=== PATIENT | female | born 1940 | race Caucasian/White ===

== ENCOUNTER 2020-08-11 15:48 | Emergency (ER) | payer MEDICARE ==
[2020-08-11] MEDS ORDERED: KETOROLAC TROMETHAMINE 30MG/ML ONE (16:52)
[2020-08-11] MEDS ORDERED: CYCLOBENZAPRINE HCL 10 MG TABLET ONE (16:52)
[2020-08-11] MEDS ORDERED: HYDROCODONE/ACETAMINOPHEN 10/325 MG TAB ONE (16:53)
== END 2020-08-11 18:13 | disposition home or self-care (01) ==
LOC: EDH 15:48
DX: M54.5 Low back pain (principal); M51.36 Other intervertebral disc degeneration, lumbar region; E11.9 Type 2 diabetes mellitus without complications; Z88.1 Allergy status to other antibiotic agents
CPT/HCPCS: 72100; 96372; 99283; J1885

== ENCOUNTER 2021-06-29 18:08 | Inpatient (IN) | payer MEDICARE, OTHER ==
[~2021-06-29] VITALS: Ht 165.1 cm; Wt 75.3 kg
[2021-06-29] MEDS ORDERED: 0.9%NACL 1000ML 1,000 ML IV ONE (18:30)
[2021-06-29] MEDS ORDERED: FENTANYL CITRATE PF 50 MCG/1 ML 2ML VIAL IVP PRN ×2 (18:30→22:00)
[2021-06-29 20:17] LABS: BASOPHILS % (AUTO) 0.4 % (0.0-5.0); EOSINOPHILS % (AUTO) 0.9 % (0.0-8.0); HEMATOCRIT 34.4 % (36-48); LYMPHOCYTES % (AUTO) 18.2 % (21.0-51.0); MEAN CORPUSCULAR HEMOGLOBIN 28.8 pg (27.0-33.0); MEAN CORPUSCULAR HGB CONC 31.7 g/dL (32.0-36.0); PLATELET COUNT (AUTO) 206 K/uL (130-400); RED BLOOD CELL COUNT(AUTO) 3.78 MIL/uL (4.00-5.50); RED CELL DISTRIBUTION WIDTH 13.4 % (11.0-15.5); WHITE BLOOD COUNT (AUTO) 10.7 K/uL (4.8-10.8)
[2021-06-29 20:27] LABS: POTASSIUM 3.6 mmol/L (3.5-5.1)
[2021-06-29 20:33] LABS: ALBUMIN 3.6 g/dL (3.5-5.0); BILIRUBIN,TOTAL 0.2 mg/dL (0.2-1.0); TOTAL PROTEIN, SERUM 7.3 g/dL (6.0-8.3)
[2021-06-29 21:34] LABS: APPEARANCE,URINE Clear (CLEAR); BILIRUBIN,URINE Negative (NEGATIVE); COLOR,URINE Yellow (YELLOW); GLUCOSE, URINE (UA) TRACE mg/dL (NEGATIVE); KETONES,URINE Negative (NEGATIVE); LEUKOCYTE ESTERASE ,URINE Negative (NEGATIVE); NITRATE,URINE Negative (NEGATIVE); OCCULT BLOOD,URINE Negative (NEGATIVE); PROTEIN,URINE Trace mg/dL (NEGATIVE); UROBILINOGEN,URINE 0.2 mg/dL (0.2-1.0)
[2021-06-29 21:46] LABS: BACTERIA,URINE None Seen /HPF (None Seen); RBC,URINE None Seen /HPF (0-1); SQUAMOUS EPITHELIAL CELL,UR None Seen /HPF (0-2); WBC,URINE 0-1 /HPF (0-1)
[2021-06-29] MEDS ORDERED: ONDANSETRON 4MG INJ IV PRN (22:00)
[2021-06-29] MEDS: LACTATED RINGERS 1000ML 1,000 ML IV SCH (22:11)
[2021-06-30] VITALS (22 sets, daily range): BP systolic 108–145; BP diastolic 55–80
[2021-06-30 04:07] LABS: BASOPHILS % (AUTO) 0.2 % (0.0-5.0); EOSINOPHILS % (AUTO) 0.3 % (0.0-8.0); HEMATOCRIT 31.9 % (36-48); LYMPHOCYTES % (AUTO) 18.5 % (21.0-51.0); MEAN CORPUSCULAR HEMOGLOBIN 28.4 pg (27.0-33.0); MEAN CORPUSCULAR VOLUME 91.7 fL (79-99); MONOCYTES % (AUTO) 6.6 % (3.0-13.0); NEUTROPHILS % (AUTO) 73.9 % (40.0-77.0); PLATELET COUNT (AUTO) 191 K/uL (130-400); RED BLOOD CELL COUNT(AUTO) 3.48 MIL/uL (4.00-5.50); RED CELL DISTRIBUTION WIDTH 13.3 % (11.0-15.5); WHITE BLOOD COUNT (AUTO) 11.2 K/uL (4.8-10.8)
[2021-06-30 04:14] LABS: HEMOGLOBIN A1C 6.6 % (4.0-6.0)
[2021-06-30 04:25] LABS: MAGNESIUM 1.8 mg/dL (1.80-2.40); PHOSPHORUS 3.6 mg/dL (2.5-4.9)
[2021-06-30 04:26] LABS: INR 1.03 (0.85-1.15); PROTHROMBIN TIME 11.2 SEC (9.6-11.6)
[2021-06-30 04:27] LABS: PARTIAL THROMBOPLASTIN TIME 27.3 SEC (26.3-35.5)
[2021-06-30] MEDS ORDERED: MORPHINE 2 MG SYG IVP ONE (05:30)
[2021-06-30 05:48] LABS: CREATININE 0.9 mg/dL (0.5-1.5); POTASSIUM 3.8 mmol/L (3.5-5.1)
[2021-06-30] MEDS ORDERED: CEFTRIAXONE 1G VIAL IVP SCH (08:00)
[2021-06-30] MEDS: KETOROLAC 15MG/ML VIAL (15MG/ML) IV PRN (08:45)
[2021-06-30] MEDS ORDERED: HYDROMORPHONE 0.5 MG SYG (0.5MG/0.5ML) IVP PRN (09:00)
[2021-06-30] MEDS: LACTATED RINGERS 1000ML 1,000 ML IV SCH ×2 (09:05→13:18)
[2021-06-30] MEDS: FAMOTIDINE 20MG VIAL IV SCH (09:19)
[2021-06-30] MEDS ORDERED: LIDOCAINE PF 100MG/5ML (2%) SYRINGE 5ML ONE (11:16)
[2021-06-30] MEDS ORDERED: PROPOFOL 10 MG/ML 20ML VIAL IV ONE (11:16)
[2021-06-30] MEDS ORDERED: KETAMINE 50MG/ML SYRINGE 50 MG/ML DISP.SYRIN IV ONE (11:18)
[2021-06-30] MEDS ORDERED: MIDAZOLAM HCL 1 MG/ML 2ML VIAL ONE (11:21)
[2021-06-30] MEDS ORDERED: GLYCOPYRROLATE 1 MG/5 ML SYRINGE ONE (11:22)
[2021-06-30] MEDS ORDERED: INSULIN HUMULIN R 100 UNIT/ML 3ML SQ SCH (12:00)
[2021-06-30] MEDS ORDERED: ONDANSETRON 4MG INJ ONE (12:26)
[2021-06-30] MEDS ORDERED: DEXAMETHASONE SOD PHOSPHATE 10MG/ML 1ML VIAL ONE (12:31)
[2021-06-30] MEDS ORDERED: PHENYLEPHRINE HCL 10 MG/ML 1ML VIAL IV ONE ×2 (13:15)
[2021-06-30] MEDS ORDERED: ALBUMIN (HUMAN) 5% 250 ML IV ONE (13:17)
[2021-06-30] MEDS: INSULIN HUMULIN R 100 UNIT/ML 3ML SQ SCH ×2 (16:30→21:00)
[2021-06-30] MEDS: HYDROCODONE/ACETAMINOPHEN 7.5/325 MG TAB PO PRN (17:37)
[2021-07-01 00:20] VITALS: BP 119/63
[2021-07-01 03:53] VITALS: BP 114/61
[2021-07-01] MEDS: LACTATED RINGERS 1000ML 1,000 ML IV SCH ×2 (04:09→11:15)
[2021-07-01] MEDS: KETOROLAC 15MG/ML VIAL (15MG/ML) IV PRN (04:09)
[2021-07-01 04:51] LABS: CARBON DIOXIDE 26 mmol/L (21-32); CHLORIDE 109 mmol/L (101-111); CREATININE 0.8 mg/dL (0.5-1.5); GLOMERULAR FILTR. RATE CALC 74 mL/min (>60); GLUCOSE,RANDOM 160 mg/dL (70-105); POTASSIUM 4.2 mmol/L (3.5-5.1); SODIUM SERUM 141 mmol/L (136-145); THYROID STIMULATING HORMONE 0.48 uIU/mL (0.36-3.74); UREA NITROGEN, BLOOD 16 mg/dL (7-18)
[2021-07-01 04:56] LABS: BASOPHILS % (AUTO) 0.1 % (0.0-5.0); LYMPHOCYTES % (AUTO) 13.8 % (21.0-51.0); MEAN CORPUSCULAR HEMOGLOBIN 28.5 pg (27.0-33.0); MEAN CORPUSCULAR HGB CONC 31.3 g/dL (32.0-36.0); MEAN CORPUSCULAR VOLUME 91.1 fL (79-99); MONOCYTES % (AUTO) 6.5 % (3.0-13.0); NEUTROPHILS % (AUTO) 79.2 % (40.0-77.0); PLATELET COUNT (AUTO) 129 K/uL (130-400); RED BLOOD CELL COUNT(AUTO) 2.14 MIL/uL (4.00-5.50); RED CELL DISTRIBUTION WIDTH 13.5 % (11.0-15.5)
[2021-07-01 05:02] LABS: HEMATOCRIT 19.5 % (36-48)
[2021-07-01 05:14] LABS: % IRON SATURATION 14.8 % (22-44)
[2021-07-01] MEDS: INSULIN HUMULIN R 100 UNIT/ML 3ML SQ SCH ×4 (06:07→20:37)
[2021-07-01 07:30] VITALS: BP 127/66
[2021-07-01] MEDS ORDERED: COMPOUND IV MISC 1 EACH IVSOLN MISC PRN (07:30)
[2021-07-01] MEDS: IRON SUCROSE COMPLEX 400 MG in 0.9%NACL 50ML 50 ML IV SCH (09:00)
[2021-07-01] MEDS ORDERED: BIMA12.5OS OD (09:55)
[2021-07-01] MEDS ORDERED: EPOETIN ALFA-EPBX (NON-ESRD) 10,000 UNIT/ML VIAL SQ SCH (10:00)
[2021-07-01] MEDS: HYDROCODONE/ACETAMINOPHEN 7.5/325 MG TAB PO PRN ×2 (10:19→21:06)
[2021-07-01] MEDS: FAMOTIDINE 20MG VIAL IV SCH (11:15)
[2021-07-01 11:30] VITALS: BP 100/44
[2021-07-01 13:34] LABS: HEMATOCRIT 21.3 % (36-48)
[2021-07-01 16:00] VITALS: BP 112/57
[2021-07-01] MEDS ORDERED: MAGNESIUM 2GM PREMIX 50ML 50 ML IV PRN (18:30)
[2021-07-01 20:54] VITALS: BP 131/61
[2021-07-02 00:39] VITALS: BP 135/65
[2021-07-02] MEDS: KETOROLAC 15MG/ML VIAL (15MG/ML) IV PRN ×2 (04:14→15:21)
[2021-07-02] MEDS: LACTATED RINGERS 1000ML 1,000 ML IV SCH (04:15)
[2021-07-02 04:20] VITALS: BP 126/59
[2021-07-02 04:56] LABS: BASOPHILS % (AUTO) 0.4 % (0.0-5.0); EOSINOPHILS % (AUTO) 1.4 % (0.0-8.0); HEMATOCRIT 24.6 % (36-48); MEAN CORPUSCULAR HEMOGLOBIN 28.8 pg (27.0-33.0); MEAN CORPUSCULAR HGB CONC 31.3 g/dL (32.0-36.0); MEAN CORPUSCULAR VOLUME 92.1 fL (79-99); MONOCYTES % (AUTO) 9.5 % (3.0-13.0); PLATELET COUNT (AUTO) 133 K/uL (130-400); RED BLOOD CELL COUNT(AUTO) 2.67 MIL/uL (4.00-5.50); RED CELL DISTRIBUTION WIDTH 14.5 % (11.0-15.5)
[2021-07-02] MEDS: INSULIN HUMULIN R 100 UNIT/ML 3ML SQ SCH ×3 (05:28→16:30)
[2021-07-02 07:30] VITALS: BP 119/62
[2021-07-02] MEDS: HYDROCODONE/ACETAMINOPHEN 7.5/325 MG TAB PO PRN (08:01)
[2021-07-02] MEDS: IRON SUCROSE COMPLEX 400 MG in 0.9%NACL 50ML 50 ML IV SCH (08:01)
[2021-07-02] MEDS: FAMOTIDINE 20MG VIAL IV SCH (08:01)
[2021-07-02] MEDS ORDERED: FAMOTIDINE 20MG TAB PO SCH (09:00)
[2021-07-02] MEDS ORDERED: BUPR200T34 PO (10:15)
[2021-07-02] MEDS ORDERED: GLIM1TAB18 PO (10:15)
[2021-07-02] MEDS ORDERED: ASPI-1197 PO (10:15)
[2021-07-02] MEDS ORDERED: DULO60CA64 PO (10:15)
[2021-07-02 11:00] VITALS: BP 109/61
[2021-07-02] MEDS ORDERED: LACTULOSE 20 GM/30 ML UDCUP PO PRN (14:30)
[2021-07-02 16:00] VITALS: BP 137/69
[2021-07-02] MEDS ORDERED: LUBIPROSTONE 24 MCG CAP PO SCH (17:30)
== END 2021-07-02 19:40 | DRG 482 ==
LOC: EDH 18:08 → EDHIP 21:34 → 4AH 06-30 05:20
PROVIDERS: ADMIT Internal Medicine; ATTEND Internal Medicine
PROC: 0QS604Z Reposition Right Upper Femur with Internal Fixation Device, Open Approach (ICD-10-PCS; principal; 2021-06-30 11:15)
PROC: 30233N1 Transfusion of Nonautologous Red Blood Cells into Peripheral Vein, Percutaneous Approach (ICD-10-PCS; 2021-07-01)
DX: S72.141A Displaced intertrochanteric fracture of right femur, initial encounter for closed fracture (principal); I10 Essential (primary) hypertension; G89.29 Other chronic pain; Z20.822 Contact with and (suspected) exposure to COVID-19; M19.90 Unspecified osteoarthritis, unspecified site; E11.40 Type 2 diabetes mellitus with diabetic neuropathy, unspecified; G62.89 Other specified polyneuropathies; Z79.82 Long term (current) use of aspirin; D64.9 Anemia, unspecified; F32.A Depression, unspecified; E78.5 Hyperlipidemia, unspecified; Z87.891 Personal history of nicotine dependence; Z88.1 Allergy status to other antibiotic agents; Z79.84 Long term (current) use of oral hypoglycemic drugs; W10.9XXA Fall (on) (from) unspecified stairs and steps, initial encounter; Y93.89 Activity, other specified; Y92.89 Other specified places as the place of occurrence of the external cause; Y99.8 Other external cause status
CPT/HCPCS: 36415; 36430; 73502; 73503; 74176; 80048; 80053; 81001; 82607; 82728; 82746; 82948; 83036; 83540; 83550; 83735; 83880; 84100; 84443; 84484; 85014; 85018; 85025; 85610; 85730; 86850; 86900; 86901; 86923; 87635; 93005; 97039; C1769; G0378; J0696; J1100; J1170; J1756; J1885; J2001; J2250; J2370; J2405; J2704; J3010; J3475; J3490; J7030; J7120; P9016; P9045